=== PATIENT | female | born 1970 | race African-American/Black ===

== ENCOUNTER 2017-10-26 02:09 | Emergency (ER) | payer OTHER ==
[~2017-10-26] VITALS: Ht 175.3 cm; Wt 85.0 kg
[2017-10-26 02:15] VITALS: BP 150/80; PULSE 98; RESP 22; TEMP 98.9; O2SAT 100
[2017-10-26] MEDS ORDERED: SODIUM CHLOR 0.9% 1000 ML INJ 1,000 ML IV SCH (02:42)
[2017-10-26] MEDS ORDERED: HYDROmorphone HCL PF 1 MG/ML VIAL IVS ONE (02:45)
[2017-10-26] MEDS ORDERED: SODIUM CHLORIDE 0.9% FLUSH 10 ML FLUSH IV FLUSH PRN (02:45)
[2017-10-26] MEDS ORDERED: ONDANSETRON ODT 4 MG TAB PO ONE (02:45)
[2017-10-26 02:59] LABS: AUTOMATED NEUTROPHIL # 3.3 TH/MM3 (1.8-7.7); BASOPHIL % 0.6 % (0.0-2.0); EOSINOPHIL % 0.5 % (0.0-4.0); HEMATOCRIT 34.7 % (35.0-46.0); HEMOGLOBIN 11.5 GM/DL (11.6-15.3); LYMPH % 33.9 % (9.0-44.0); LYMPHOCYTE # 1.9 TH/MM3 (1.0-4.8); MEAN CELL VOLUME 91.6 FL (80.0-100.0); MEAN CORPUSCULAR HEMOGLOBIN 30.5 PG (27.0-34.0); MEAN CORPUSCULAR HGB CONC 33.3 % (32.0-36.0); MEAN PLATELET VOLUME 8.8 FL (7.0-11.0); MONO % 7.2 % (0.0-8.0); MONOCYTE # 0.4 TH/MM3 (0-0.9); NEUT % 57.8 % (16.0-70.0); PLATELET COUNT 215 TH/MM3 (150-450); RED BLOOD COUNT 3.79 MIL/MM3 (4.00-5.30); RED CELL DISTRIBUTION WIDTH 14.3 % (11.6-17.2); WHITE BLOOD COUNT 5.7 TH/MM3 (4.0-11.0)
[2017-10-26] MEDS ORDERED: HYDROmorphone HCL PF 2 MG/ML VIAL IV PUSH ONE (03:00)
[2017-10-26 03:35] LABS: ALBUMIN 4.1 GM/DL (3.4-5.0); ALT (GPT) 15 U/L (10-53); AST (GOT) 13 U/L (15-37); BICARBONATE 21.7 MEQ/L (21.0-32.0); BLOOD UREA NITROGEN 14 MG/DL (7-18); CALCIUM 8.8 MG/DL (8.5-10.1); CHLORIDE 109 MEQ/L (98-107); CREATININE 0.78 MG/DL (0.50-1.00); GLOMERULAR FILTRATION RATE 80 ML/MIN (>89); GLUCOSE,RANDOM 128 MG/DL (74-106); SODIUM (NA) 142 MEQ/L (136-145)
[2017-10-26 03:38] LABS: ALKALINE PHOSPHATASE 58 U/L (45-117); TOTAL BILIRUBIN ADULT 0.2 MG/DL (0.2-1.0); TOTAL PROTEIN 7.9 GM/DL (6.4-8.2)
[2017-10-26 03:45] VITALS: O2SAT 98
--- NOTE | 2017-10-26 04:47 | RADRPT ---
EXAM DATE: 10/26/2017 4:23 AM EDT AGE/SEX: 46 years / Female INDICATIONS: Pelvic pain. CLINICAL DATA: This is the patient's initial encounter. Patient reports that signs and symptoms have been present for 1 day and indicates a pain score of 8/10. MEDICAL/SURGICAL HISTORY: . Pelvic pain with vomiting. section. Right oophorectomy. COMPARISON: No prior exams available for comparison. MEASUREMENTS: Uterus:__9.4 x 5.5 x 4.9 cm Endometrial Stripe:__4 mm Right Ovary:__ _ Surgically absent. Left Ovary:__ 4.1 x 2.7 x 5.6 cm FINDINGS: Uterus: The myometrium has homogeneous echotexture without mass. There are small nabothian cysts in the cervical region. Endometrial Stripe: The endometrial stripe displays homogeneous echotexture. Right Ovary: Surgically absent. Left Ovary: Ovary contains no mass. Follicles are present. There is normal color flow. Fluid: No free fluid. Other: None. CONCLUSION: 1. Unremarkable left ovary with no evidence of torsion. 2. Status post right nephrectomy. 3. The uterus is unremarkable with small nabothian cysts. Electronically signed by: Elkin Thompson MD 10/26/2017 4:45 AM EDT
--- NOTE | 2017-10-26 05:15 | PD ---
HPI Chief Complaint: Abdominal Pain Time Seen by Provider: 02:34 Travel History International Travel<30 days: No Contact w/Intl Traveler<30days: No Traveled to known affect area: No History of Present Illness HPI This is a 46-year-old female who presents to the emergency department with sudden onset lower abdominal pain that radiates to the back, constant, severe associated with nausea and vomiting that started while she was in the car driving. She has never had pain like this before. She does have a history of an ovarian cyst removal. She is on her menstrual cycle currently. [facility], [facility] Past Medical History Medical History: Denies Significant Hx ?: Not LMP: 10/26/17 Past Surgical History Section: Yes Social History Alcohol Use: No Tobacco Use: No Substance Use: No Allergies-Medications (Allergen,Severity, Reaction): Coded Allergies: No Known Allergies (Unverified , 10/26/17) Review of Systems Except as stated in HPI: all other systems reviewed are Neg Physical Exam Narrative GENERAL: Uncomfortable appearing, writhing in bed SKIN: Focused skin assessment warm and dry. HEAD: Atraumatic. Normocephalic. EYES: Pupils equal and round. No injection or drainage. ENT: Moist mucous membranes NECK: Trachea midline. CARDIOVASCULAR: Regular rate and rhythm. No murmur appreciated. RESPIRATORY: Clear to auscultation. Breath sounds equal bilaterally. GASTROINTESTINAL: Abdomen soft, tender to palpation in the left lower quadrant with no rebound or guarding. MUSCULOSKELETAL: No obvious deformities. NEUROLOGICAL: Awake and alert. No obvious cranial nerve deficits. Moving all extremities. PSYCHIATRIC: Appropriate mood and affect; insight and judgment normal. Data Data Last Documented VS Vital Signs Date Time Temp Pulse Resp B/P (MAP) Pulse Ox O2 Delivery O2 Flow Rate FiO2 10/26/17 03:45 98 Room Air 10/26/17 02:15 98.9 98 22 150/80 (103) Orders Orders Complete Blood Count With Diff (10/26/17 02:42) Comprehensive Metabolic Panel (10/26/17 02:42) Lipase (10/26/17 02:42) Lactic Acid (10/26/17 02:42) Urinalysis - C+S If Indicated (10/26/17 02:42) Iv Access Insert/Monitor (10/26/17 02:42) Ecg Monitoring (10/26/17 02:42) Oximetry (10/26/17 02:42) Sodium Chlor 0.9% 1000 Ml Inj (Ns 1000 M (10/26/17 02:42) Sodium Chloride 0.9% Flush (Ns Flush) (10/26/17 02:45) Hydromorphone Pf Inj (Dilaudid Pf Inj) (10/26/17 02:45) Ed Urine Pregnancytest Poc (10/26/17 02:42) Ondansetron Odt (Zofran Odt) (10/26/17 02:45) Ed Poc Ultrasound (10/26/17 ) Hydromorphone Pf Inj (Dilaudid Pf Inj) (10/26/17 03:00) Us Pelvis Comp W Doppler (10/26/17 ) Ct Abd/Pel W/O Iv Contrast (10/26/17 ) Ketorolac Inj (Toradol Inj) (10/26/17 05:45) Labs Laboratory Tests Test 10/26/17 02:45 White Blood Count 5.7 TH/MM3 Red Blood Count 3.79 MIL/MM3 Hemoglobin 11.5 GM/DL Hematocrit 34.7 % Mean Corpuscular Volume 91.6 FL Mean Corpuscular Hemoglobin 30.5 PG Mean Corpuscular Hemoglobin Concent 33.3 % Red Cell Distribution Width 14.3 % Platelet Count 215 TH/MM3 Mean Platelet Volume 8.8 FL Neutrophils (%) (Auto) 57.8 % Lymphocytes (%) (Auto) 33.9 % Monocytes (%) (Auto) 7.2 % Eosinophils (%) (Auto) 0.5 % Basophils (%) (Auto) 0.6 % Neutrophils # (Auto) 3.3 TH/MM3 Lymphocytes # (Auto) 1.9 TH/MM3 Monocytes # (Auto) 0.4 TH/MM3 Eosinophils # (Auto) 0.0 TH/MM3 Basophils # (Auto) 0.0 TH/MM3 CBC Comment DIFF FINAL Differential Comment Blood Urea Nitrogen 14 MG/DL Creatinine 0.78 MG/DL Random Glucose 128 MG/DL Total Protein 7.9 GM/DL Albumin 4.1 GM/DL Calcium Level 8.8 MG/DL Alkaline Phosphatase 58 U/L Aspartate Amino Transf (AST/SGOT) 13 U/L Alanine Aminotransferase (ALT/SGPT) 15 U/L Total Bilirubin 0.2 MG/DL Sodium Level 142 MEQ/L Potassium Level 3.4 MEQ/L Chloride Level 109 MEQ/L Carbon Dioxide Level 21.7 MEQ/L Anion Gap 11 MEQ/L Estimat Glomerular Filtration Rate 80 ML/MIN Lactic Acid Level 1.2 mmol/L Lipase 131 U/L [facility] Medical Decision Making Medical Screen Exam Complete: Yes Emergency Medical Condition: Yes Interpretation(s) Afebrile, mild tachycardia, hypertensive Mild anemia Mild hypokalemia Lactic acid is 1.2 test is negative Last 24 hours Impressions Pelvis Ultrasound 10/26/17 0000 Signed Impressions: CONCLUSION: 1. Unremarkable left ovary with no evidence of torsion. 2. Status post right nephrectomy. 3. The uterus is unremarkable with small nabothian cysts. Abdomen/Pelvis CT 10/26/17 Signed Impressions: CONCLUSION: 1. Bilateral tiny renal calculi with no obstruction. 2. Unremarkable appearing bowel gas pattern with no oral contrast Differential Diagnosis Ovarian torsion, nephrolithiasis, ectopic , pancreatitis, cholecystitis , choledocholithiasis Narrative Course This is a 46-year-old female who presents to the emergency department with acute pelvic pain an hour ago when she was driving in the car. She is writhing in pain on arrival. She is placed on a monitor and an IV was established. She was given a milligram of IV Dilaudid and her symptoms improved. Pelvic ultrasound was performed for concern for ovarian torsion as she had a large ovarian cyst resected in the past. Ultrasound was negative. CT abdomen pelvis was obtained which demonstrates some calculi in the kidneys but nothing in the ureters. On reassessment her pain is significantly improved. I suspect she had a kidney stone that passed. Patient will be discharged and can follow-up with her primary care physician as an outpatient. Diagnosis Primary Impression: Abdominal pain Qualified Codes: R10.32 - Left lower quadrant pain Patient Instructions: General Instructions Additional Instructions: If you develop severe or worsening abdominal pain, fever>100.4, persistent vomiting or inability to eat or drink return to the emergency department immediately. Follow up with your primary care physician in 1-2 days for a check-up. Med/Other Pt SpecificInfo: Prescription(s) given Scripts Ondansetron Odt (Zofran Odt) 4 Mg Tab 4 MG SL Q6HR Y for Nausea/Vomiting, #10 TAB 0 Refills Prov: Sheri Hylton MD 10/26/17 Naproxen (Naproxen) 500 Mg Tab 500 MG PO BID Y for PAIN SCALE 4 TO 10, #10 TAB 0 Refills Prov: Sheri Hylton MD 10/26/17 Tramadol (Tramadol) 50 Mg Tab 50 MG PO Q6H Y for PAIN, #8 TAB 0 Refills Prov: Sheri Hylton MD 10/26/17 Disposition: 01 DISCHARGE HOME Condition: Stable Sheri Hylton MD Oct 26, 2017 05:15
--- NOTE | 2017-10-26 05:25 | RADRPT ---
EXAM DATE: 10/26/2017 5:00 AM EDT AGE/SEX: 46 years / Female INDICATIONS: Left abdominal pain. CLINICAL DATA: This is the patient's initial encounter. Patient reports that signs and symptoms have been present for 1 day and indicates a pain score of 10/10. MEDICAL/SURGICAL HISTORY: None. section. Femur sanna. RADIATION DOSE: 7.31 CTDI (mGy) COMPARISON: No prior exams available for comparison. TECHNIQUE: Multiple contiguous axial images were obtained through the abdomen. Images were obtained using multiple row detector helical technique. Using automated exposure control and adjustment of the mA and/or kV according to patient size, radiation dose was kept as low as reasonably achievable to o btain optimal diagnostic quality images. DICOM format image data is available electronically for rev iew and comparison. FINDINGS: Lower Lungs: The visualized lower lungs are clear. Liver: The liver has a homogeneous density without space-occupying lesion. There is no dilation of th e biliary tree. Spleen: Homogeneous density without enlargement. Pancreas: Unremarkable without mass or calcification. Kidneys: Normal in size and shape. No evidence of mass or hydronephrosis. There are 2 tiny less than 1 mm right renal calculi. As a single tiny nonobstructing left renal calculus. Adrenal Glands: Unremarkable. Aorta: The aorta and proximal iliac vessels are grossly unremarkable without aneurysmal dilation. Bowel/Mesentery: No oral contrast was given limiting the sensitivity. The bowel loops are grossly un remarkable. The cecum and sigmoid colon have a normal configuration. Abdominal Wall: Intact. Retroperitoneum: No evidence of adenopathy in the retrocrural, para-aortic, or deep pelvic regions. Bladder: Contours are smooth. Reproductive Organs: No abnormal masses or calcifications seen. Inguinal: The inguinal region is unremarkable without evidence of adenopathy. Bony Structures: Unremarkable. CONCLUSION: 1. Bilateral tiny renal calculi with no obstruction. 2. Unremarkable appearing bowel gas pattern with no oral contrast Electronically signed by: Elkin Thompson MD 10/26/2017 5:23 AM EDT
[2017-10-26] MEDS ORDERED: NAPR500T2 PO (05:35)
[2017-10-26] MEDS ORDERED: ZOFR4TAB3 SL (05:35)
[2017-10-26] MEDS ORDERED: TRAM50TA PO (05:35)
[2017-10-26] MEDS ORDERED: KETOROLAC TROMETHAMINE 30 MG/ML (IVP) VIAL IVP ONE (05:45)
[2017-10-26 05:51] LABS: AMORPHOUS SEDIMENT, URINE MOD; BACTERIA, URINE OCC /hpf; BILIRUBIN, URINE NEG (NEG); BLOOD, URINE LARGE (NEG); GLUCOSE,URINE NEG (NEG); KETONE, URINE 20 mg/dL (NEG); MUCUS URINE MANY /lpf (OCC); NITRITE,URINE POS (NEG); SQUAMOUS EPITHELIAL CELL URINE 1 /hpf (0-5); URINE COLOR YELLOW (YELLW/STRAW); URINE LEUKOCYTE ESTERASE NEG (NEG)
== END 2017-10-26 06:04 | disposition home or self-care (01) ==
LOC: NEPE 02:09
DX: R10.32 Left lower quadrant pain (principal); R11.2 Nausea with vomiting, unspecified; R00.0 Tachycardia, unspecified; I10 Essential (primary) hypertension; D64.9 Anemia, unspecified; E87.6 Hypokalemia; B95.7 Other staphylococcus as the cause of diseases classified elsewhere
CPT/HCPCS: 74176; 76856; 80053; 81001; 83605; 83690; 84703; 85025; 87077; 87086; 87186; 93975; 96374; 96375; 99285; J1170; J1885; J7030